=== PATIENT | male | born 2000 | race African-American/Black ===

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

== ENCOUNTER 2018-10-08 23:26 | Emergency (ER) | payer BC, OTHER ==
[2018-10-08 23:43] VITALS: TEMP 98; BMI 24.6
--- NOTE | 2018-10-09 00:39 | PDOC ---
History of Present Illness - General Chief Complaint: Pain Stated Complaint: ABD PAIN Time Seen by Provider: 10/09/18 00:38 - History of Present Illness Initial Comments: 10/09/18 01:19 Jean Claude Duron is a 17y previously healthy M presenting with substernal chest pain. Pain started at 1030p after heavy lifting and ab workout. Associated lightheadedness. Symptoms resolved after waiting in triage. Denies supplements other than protein, denies alcohol/smoking. Denies fever, vision change, SOB, AB pain, urinary, bowel mvmt changes. Past History - Past Medical History Allergies/Adverse Reactions: Allergies Allergy/AdvReac Type Severity Reaction Status Date / Time No Known Allergies Allergy Verified 09/16/16 12:45 Home Medications: Ambulatory Orders NK [No Known Home Medication] 09/16/16 Anemia: No Asthma: No Cancer: No Cardiac Disorders: No CVA: No COPD: No CHF: No Dementia: No Diabetes: No GI Disorders: No Disorders: No HTN: No Hypercholesterolemia: No Liver Disease: No Seizures: No Thyroid Disease: No - Suicide/Smoking/Psychosocial Hx Smoking History: Never smoked Have you smoked in the past 12 months: No Hx Alcohol Use: No Drug/Substance Use Hx: No Substance Use Type: None Hx Substance Use Treatment: No Review of Systems - Review of Systems Constitutional: No: Chills, Fever HEENTM: No: Eye Pain, Recent change in vision, Double Vision, Nose Pain, Throat Pain Respiratory: No: Cough, Shortness of Breath, Wheezing Cardiac (ROS): Yes: Chest Pain (substernal), Lightheadedness. No: Irregular Heart Rate, Palpitations, Syncope ABD/GI: No: Abdominal Distended, Constipated, Diarrhea, Nausea, Vomiting : No: Burning, Dysuria, Discharge Musculoskeletal: No: Back Pain, Joint Pain, Muscle Pain, Muscle Weakness Integumentary: No: Bruising, Change in Color, Flushing, Lesions Neurological: No: Headache, Numbness, Paresthesia, Seizure, Tingling, Tremors Psychiatric: No: Anxiety, Depression Endocrine: No: Excessive Sweating, Flushing, Intolerance to Cold, Intolerance to Heat Hematologic/Lymphatic: No: Anemia, Blood Clots, Easy Bleeding *Physical Exam - Vital Signs Last Vital Signs Temp Pulse Resp BP Pulse Ox 98 F 57 L 20 129/84 100 10/08/18 23:30 10/08/18 23:30 10/08/18 23:30 10/08/18 23:30 10/08/18 23:30 - Physical Exam General Appearance: Yes: Nourished, Appropriately Dressed. No: Apparent Distress HEENT: positive: EOMI, JACK, Normal Voice, Hearing Grossly Normal. negative: Pale Conjunctivae Neck: positive: Trachea midline, Normal Thyroid, Supple. negative: Tender, Rigid Respiratory/Chest: positive: Lungs Clear, Normal Breath Sounds. negative: Chest Tender, Respiratory Distress, Decreased Breath Sounds, Crackles, Rales, Rhonchi, Stridor, Wheezing Cardiovascular: positive: Regular Rhythm, Regular Rate, S1, S2. negative: Edema , Murmur Gastrointestinal/Abdominal: positive: Normal Bowel Sounds, Flat, Soft. negative : Tender, Organomegaly, Distended, Guarding, Rebound, Mass Musculoskeletal: negative: CVA Tenderness Integumentary: positive: Normal Color Neurologic: positive: phys ther II-XII NML intact, Fully Oriented, Alert, Normal Mood/ Affect, Normal Response, Motor Strength 5/5, Responsive. negative: Confused, Disoriented Medical Decision Making - Medical Decision Making 10/09/18 00:51 CXR EKG trop Jean Claude Duron is a 17y previously healthy M presenting with substernal chest pain. No murmur heard ruling out papillary muscle rupture causing mitral regurg. CXR, EKG normal, trop negative. D/c home *DC/Admit/Observation/Transfer Diagnosis at time of Disposition: Chest pain Qualifiers: Chest pain type: other chest pain Qualified Code(s): R07.89 - Other chest pain - Discharge Dispostion Disposition: HOME Condition at time of disposition: Good Decision to Admit order: No - Referrals Referrals: Anaya Parry MD [Primary Care Provider] - - Patient Instructions Printed Discharge Instructions: DI for Chest Pain Additional Instructions: You were seen for chest pain. Your imaging and lab workup came back normal. Come back to the ED if you have worsening chest pain, vomiting, or cannot breathe. - Post Discharge Activity
[2018-10-09 03:19] VITALS: BP 121/86; PULSE 62
--- NOTE | 2018-10-09 15:18 | EKG ---
Test Reason : Blood Pressure : / mmHG Vent. Rate : 051 BPM Atrial Rate : 051 BPM P-R Int : 180 ms QRS Dur : 094 ms QT Int : 446 ms P-R-T Axes : 032 051 027 degrees QTc Int : 411 ms SINUS BRADYCARDIA WITH SINUS ARRHYTHMIA OTHERWISE NORMAL ECG NO PREVIOUS ECGS AVAILABLE Confirmed by MD Savage, Rian ([id number]) on 10/09/2018 3:17:49 PM Referred By: Confirmed By:Rian Wan MD
--- NOTE | 2018-10-09 20:20 | PDOC ---
Documentation entered by Karyn Jolly SCRIBE, acting as scribe for Kim Canas MD. Kim Canas MD: This documentation has been prepared by the Shanae mobley Mackenzie, SCRIBE, under my direction and personally reviewed by me in its entirety. I confirm that the documentation accurately reflects all work, treatment, procedures, and medical decision making performed by me. Attending Attestation - Resident Resident Name: Anatoliy Sommer - ED Attending Attestation I have performed the following: I have examined & evaluated the patient, The case was reviewed & discussed with the resident, I agree w/resident's findings & plan - HPI HPI: The patient is a 17 year old male with no significant PMH who presents to the ED with 2 hours of substernal nonradiating chest pain that started right after working out. Patient also notes feeling lightheaded however states all symptoms have since resolved upon arrival in the ED. The patient denies, shortness of breath, and headache. Denies fever, chills, nausea, vomiting, diarrhea and constipation. Denies dysuria, frequency, urgency and hematuria. Allergies:NKDA PCP: Kiesha Pardo 10/09/18 01:11 - Physicial Exam PE: GENERAL: Awake, alert, and fully oriented, in no acute distress HEAD: No signs of trauma EYES: PERRLA, EOMI, sclera anicteric, conjunctiva clear ENT: Auricles normal inspection, hearing grossly normal, nares patent, oropharynx clear without exudates. Moist mucosa NECK: Normal ROM, supple, no lymphadenopathy, JVD, or masses LUNGS: Breath sounds equal, clear to auscultation bilaterally. No wheezes, and no crackles HEART: Regular rate and rhythm, normal S1 and S2, no murmurs, rubs or gallops ABDOMEN: Soft, nontender, normoactive bowel sounds. No guarding, no rebound. No masses EXTREMITIES: Normal range of motion, no edema. No clubbing or cyanosis. No cords, erythema, or tenderness NEUROLOGICAL: Cranial nerves II through XII grossly intact. Normal speech, normal gait SKIN: Warm, Dry, normal turgor, no rashes or lesions noted. 10/09/18 01:57 - Medical Decision Making 10/09/18 20:19 Pt's EKG and cxr and exam is normal and he is stable for D/C Heart Score/ECG Review - ECG Intrepretation Rhythm: Regular Rhythm (Pt has SINUS ARRHYTHMIA) - [place]: Normal - P and [place] Prominent R with upright T in V1 (true posterior HI): No Delta Wave(s) Present: No WPW: No - ST and T Early Repolarization: No Non Specific ST-T Wave changes: No Flattened T Waves: No Prolonged Q-T Interval: No - ECG Impressions Normal ECG: Yes Non-specific ST Elevation: No Ischemic Changes: No
== END 2018-10-09 03:18 | disposition home or self-care (01) ==
LOC: JER 23:26
DX: R07.89 Other chest pain (principal)
CPT/HCPCS: 36415; 71046-TC-FY; 84484; 93005; 93010; 99282-25

== ENCOUNTER 2021-07-24 19:34 | Emergency (ER) | payer BC, OTHER ==
[2021-07-24 20:12] VITALS: BP 122/77; PULSE 52; TEMP 98; BMI 24.6
== END 2021-07-24 21:11 | disposition home or self-care (01) ==
LOC: JERFT 19:34
DX: S06.0X0A Concussion without loss of consciousness, initial encounter (principal)
CPT/HCPCS: 99283-25